=== PATIENT | male | born 1945 | race Caucasian/White ===

== ENCOUNTER → 2017-06-17 | Outpatient (CLI) | payer OTHER ==
[~2017-06-17] MED LIST: CHOL100010 PO; KETO10TA PO; OXYC-57 PO; PSYL48.59 PO; TADA2.5T PO
[2017-06-17 17:43] LABS: BASO % 0.2 %; BASO ABS # 0.01 K/uL (0-0.2); EOS % 2.3 %; EOS ABS # 0.12 K/uL (0-0.5); HEMATOCRIT 42.2 % (42-52); HEMOGLOBIN 15.3 g/dL (14.0-18.0); IG# 0.01 K/uL (0.00-0.02); LYMPH % 24.3 %; LYMPH ABS # 1.29 K/uL (1.2-3.4); MEAN CELL VOLUME 91.5 fL (80-100); MEAN CORPUSCULAR HEMOGLOBIN 33.2 pg (25-34); MEAN CORPUSCULAR HGB CONC 36.3 g/dl (32-36); MEAN PLATELET VOLUME 8.8 fL (7.4-10.4); MONO % 6.8 %; MONO ABS # 0.36 K/uL (0.11-0.59); NEUT % 66.2 %; NEUT ABS # 3.51 K/uL (1.4-6.5); PLATELET COUNT 140 K/uL (130-400); RED CELL DISTRIBUTION WIDTH CV 13.3 % (11.5-14.5); RED CELL DISTRIBUTION WIDTH SD 44.1 fL (36.4-46.3)
[2017-06-17 18:14] LABS: BLOOD UREA NITROGEN 11 mg/dl (7-18); CALCIUM 8.8 mg/dl (8.5-10.1); CARBON DIOXIDE 29 mmol/L (21-32); CREATININE 0.69 mg/dl (0.60-1.40); GLUCOSE 80 mg/dl (70-99); POTASSIUM 3.9 mmol/L (3.5-5.1); SODIUM 139 mmol/L (136-145)
== END | disposition home or self-care (01) ==
LOC: C.LAB 16:19
PROVIDERS: ATTEND Orthopaedic Surgery
DX: Z01.812 Encounter for preprocedural laboratory examination (principal); Z01.810 Encounter for preprocedural cardiovascular examination; M75.121 Complete rotator cuff tear or rupture of right shoulder, not specified as traumatic

== ENCOUNTER → 2017-06-20 | Day surgery (SDC) | payer OTHER ==
[2017-06-19 13:10] VITALS: Ht 188 cm; Wt 102.3 kg
[~2017-06-20] VITALS: Ht 188 cm; Wt 102.3 kg
[~2017-06-20] MED LIST changes: +ATROPINE SULFATE 0.1 MG/ML 5ML SYR IV PRN; +BUPIVACAINE 0.25% 30 ML VIAL ONE; +CEFAZOLIN 1000MG IV PUSH 7.5 ML IV SCH; +CEFAZOLIN 2000MG IV PUSH 15 ML IV SCH; +DEXAMETHASONE SOD INJ 4 MG/ML VIAL ONE; +EpHEDrine SULFATE 50MG/5ML SYR ONE; +EpHEDrine SULFATE INJ 50 MG/ML AMP IV PRN; +EpINEphrine INJ 1MG/ML AMP 1 MG/ML AMP ONE; +FENTANYL CITRATE INJ 50 MCG/1 ML 2 ML VIAL IV PRN; +FENTANYL CITRATE INJ 50 MCG/1 ML 2 ML VIAL ONE; +KETOROLAC TROMETHAMINE 15 MG/ML VIAL IV. PRN; +LIDOCAINE HCL 2% 2 ML VIAL (20MG/ML) ONE; +MIDAZOLAM HCL 1 MG/ML 2ML VIAL ONE; +ONDANSETRON INJ 2 MG/ML 2 ML VIAL IV PRN; +ONDANSETRON INJ 2 MG/ML 2 ML VIAL ONE; +OXYCODONE/ACETAMINOPHEN 5-325 TAB PO PRN; +PATIENT'S ALLERGY INFO NEEDS ENTERED SCH; +PATIENT'S HEIGHT AND/OR WEIGHT NEEDED SCH; +PROPOFOL IV EMULSION 10 MG/ML 20 ML VIAL IV ONE; +ROPIVACAINE 0.5% 5 MG/ML 30 ML VIAL ONE; +SODIUM CHLORIDE 0.9% 1000ML 1,000 ML IV SCH
[2017-06-20] MEDS: LACTATED RINGER'S 1000ML 1,000 ML IV SCH ×2 (08:58→13:16)
--- NOTE | 2017-06-20 11:30 | History & Physical Bridge - [place] ---
H&P Re-Evaluation Bridge Note: I have examined the patient, reviewed the History & Physical and in the interval since the performance of the History & Physical I have noted the following changes of clinical significance: No changes noted
--- NOTE | 2017-06-20 12:35 | [facility] Post Operative Brief Note ---
Immediate Operative Summary Operative Date Jun 20, 2017. Pre-Operative Diagnosis Right Full Thickness Rotator Cuff Tear Post-Operative Diagnosis Medium Rotator Cuff Tear, Bicep Tenopathy Procedure(s) Performed Right Shoulder Arthroscopy With Medium Rotator Cuff Repair, Acromioplasty, Distal Clavicle Resection, Arthoscopic Biceps Tendonesis Surgeon Dr. Iain Pierce Laborer Heading Surgeon(s) Hiram Pruitt PA-C Estimated Blood Loss 5 cc Findings Consistent with Post-Op Diagnosis Specimens None Anesthesia Type General Regional Complication(s) none Disposition Disposition: Recovery Room / PACU
--- NOTE | 2017-06-20 12:50 | Discharge Instructions-SurgCtr ---
Discharge Instructions Date of Service Jun 20, 2017. Visit Reason for Visit: Right Shoulder Full Thickness Rotator Cuff Teaer Discharge Discharge Diagnosis / Problem: SAME ABOVE Discharge Goals Goal(s): Decrease discomfort, Improve function Activity Recommendations Activity Limitations: as noted below Lifting Limitations: until after follow-up appointment Exercise/Sports Limitations: until after follow-up appointment Shower/Bathe: tomorrow Anesthesia . Post Anesthesia Instructions: If you have had General Anesthesia or IV Sedation: * Do not drive today. * Resume driving when surgeon permits. * Do not make important decisions or sign legal documents today. * Call surgeon for: 1. Temperature elevations greater than 101 degrees F. 2. Uncontrollable pain. 3. Excessive bleeding. 4. Persistent nausea and vomiting. 5. Medication intolerance (nausea, vomiting or rash). * For nausea and vomiting use only clear liquids such as: tea, soda, bouillon until nausea subsides, then gradually increase diet as tolerated. * If you have any concerns or questions, call your surgeon's office. If physician is unavailable and it is an emergency, call 911 or go to the nearest emergency room. . Instructions / Follow-Up Instructions / Follow-Up MEDICATIONS: * Resume previous medications unless instructed otherwise by your surgeon. * Always take pain medication on a full stomach or with food to avoid upset stomach. * Do not drink alcohol or drive while taking narcotics. * Ibuprofen or Tylenol may be taken if narcotic not needed. SPECIAL CARE INSTRUCTIONS: __ None _X_ Keep extremity elevated and iced x 48 hours; apply ice 20-30 minutes 8-10 times/day. May remove at night. __ Sling __24 hrs/day __ Remove at night _X_ Shoulder Immobilizer (MAY REMOVE AFTER 48 HOURS ONLY TO SHOWER AND FOR THERAPY) _X_ 24 hrs/day __ Remove at night _X_ Dressing __ Maintain until seen in office, may shower with plastic over site _X_ Remove dressings in 24-48 hours and then may shower _X_ Cover incisions with band-aids after showering __ Do not remove steri-strips Call physician if chills or temperature rises above 102 degrees or pain unrelieved by prescribed pain medications at . . Diet Recommendations Home Diet: no limitations Fluid Restriction: None Procedures Procedures Performed: Right Shoulder Arthroscopy With Medium Rotator Cuff Repair, Acromioplasty, Distal Clavicle Resection, Arthoscopic Biceps Tendonesis Pending Studies Studies pending at discharge: no Work Instructions Lifting Limitations: NO LIFTING WITH RIGHT SHOULDER Medical Emergencies . Who to Call and When: Medical Emergencies: If at any time you feel your situation is an emergency, please call 911 immediately. . Non-Emergent Contact Non-Emergency issues call your: Primary Care Provider Call Non-Emergent contact if: you have a fever, temperature is above 101.5 . . "Provider Documentation" section prepared by Kenneth Pruitt. .
--- NOTE | 2017-06-20 13:03 | OPERATIVE REPORT ---
DATE OF OPERATION: 06/20/2017 PREOPERATIVE DIAGNOSIS: Medium-sized right rotator cuff tear. POSTOPERATIVE DIAGNOSIS: Same. PROCEDURE: Right shoulder diagnostic arthroscopy with limited debridement, acromioplasty, distal clavicle resection to include co-planing the undersurface of the clavicle with a medium size rotator cuff repair and an arthroscopic biceps tenodesis. SURGEON: Dr. Harman Pierce. FRONT END JAVA DEVELOPER: Kenneth Pruitt PA-C, whose assistance was necessary for positioning the arm and help with instrumentation. ANESTHESIA: General with a right interscalene nerve block. COMPLICATIONS: None. CONDITION: Stable to PACU. INDICATIONS: Deep is a pleasant 72-year-old male who fell on his outstretched hand about 2-1/2 months ago. He has been having shoulder pain and weakness since. MRI and clinical examination were diagnostic for rotator cuff tear of the right shoulder. After failing conservative treatment, he elected to undergo arthroscopy. On 06/20/2017, he arrived at [facility] for the above procedure. He was seen in the preoperative holding and the operative extremity was identified and signed. He was given a preoperative antibiotic and a right interscalene nerve block. He was taken back to the operating room, laid on the table in supine position and put under general anesthesia. He was then put into the beachchair position. The right shoulder was prepped and draped in sterile fashion. A time-out was done and the patient's operative extremity was properly identified. A scope was introduced in the posterior portal. Diagnostic arthroscopy showed no cartilage damage to the humeral head or the glenoid. The biceps tendon was intact but frayed at the deonte mechanism. There was a tear of the entire supraspinatus. The majority of the infraspinatus, the teres minor and subscapularis were completely intact. An anterior portal was made. A shaver was used to do a limited debridement of the intraarticular structures and the biceps tendon was tenotomized for later tenodesis. The scope was then put into the subacromial space. A lateral portal was made. A shaver was used to do a complete subacromial and subdeltoid bursectomy. An ablator was used to tease the coracoacromial ligament off the undersurface of the acromion and a 5-0 juan was used to complete an acromioplasty of a Bigliani type 3 acromion. A shaver was used to remove any excess debris. There were very large osteophytes hanging off the undersurface of the clavicle. A 5-0 juan was used to remove the inferior osteophytes off the clavicle and open up the supraspinatus outlet. This completed distal clavicle resection. Attention was then turned to the rotator cuff. An additional anterolateral portal was made and Natty cannulas were placed in each lateral portals. It was a medium size crescent-shaped rotator cuff tear. The greater tuberosity was prepared with a ring curette and microfracture. The rotator cuff was then fixed with an Arthrex SpeedBridge configuration using BioComposite SwiveLock suture anchors in FiberTapes. This gave a nice repair and multiple pictures were taken. The scope was placed back into the glenohumeral joint and the articular margin of the rotator cuff had been restored. Pictures were taken. To note, the long head of the biceps tendon was tagged with a FiberLink and incorporated into the anterior medial anchor to complete an arthroscopic biceps tenodesis. Arthroscopic instruments were removed from the shoulder. Portal sites were closed with 3-0 nylon. He was then placed in a soft dressing and an abduction arm sling. He was then extubated, transferred to a litter and taken to the postanesthesia care unit in stable condition. He tolerated the procedure well. I attest to the content of the Intraoperative Record and any orders documented therein. Any exception s are noted below.
[2017-06-20 13:32] VITALS: TEMP 36.4
[2017-06-20 14:20] VITALS: BP 148/76; PULSE 60; O2SAT 95
--- NOTE | 2017-06-20 14:26 | Anesthesia Progress Nt - [facility] ---
Anesthesia Post Op Note Date & Time Jun 20, 2017 at 14:26 Vital Signs Pain Intensity: 2.0 Vital Signs Past 12 Hours Date Time Temp Pulse Resp B/P (MAP) Pulse Ox O2 Delivery O2 Flow Rate FiO2 06/20/17 14:20 60 16 148/76 (100) 95 Room Air 06/20/17 13:32 36.4 60 16 146/78 (100) 98 Room Air 06/20/17 13:25 145/77 06/20/17 13:22 59 11 06/20/17 13:22 61 11 96 06/20/17 13:21 36.2 61 12 145/77 98 Room Air 06/20/17 13:20 121/63 06/20/17 13:17 57 4 97 06/20/17 13:17 57 4 06/20/17 13:16 140/67 06/20/17 13:12 60 17 06/20/17 13:12 59 17 100 06/20/17 13:11 147/76 06/20/17 13:07 61 8 06/20/17 13:07 61 8 100 06/20/17 13:06 97/83 06/20/17 13:02 48 7 06/20/17 13:02 57 7 100 06/20/17 13:01 143/82 06/20/17 12:57 61 10 138/81 100 06/20/17 12:57 51 10 06/20/17 12:52 64 23 149/68 87 06/20/17 12:52 66 23 06/20/17 12:52 36.4 64 12 149/68 100 Mask 6 06/20/17 11:23 49 06/20/17 11:23 48 7 100 06/20/17 11:20 149/76 06/20/17 11:18 49 8 100 06/20/17 11:18 50 06/20/17 11:15 122/84 06/20/17 11:13 61 06/20/17 11:13 60 27 100 06/20/17 11:11 142/78 06/20/17 11:08 48 6 100 06/20/17 11:08 48 06/20/17 11:06 144/80 06/20/17 11:03 51 5 100 06/20/17 11:03 50 06/20/17 11:01 164/83 06/20/17 11:00 50 29 148/78 (101) 100 Mask 6 06/20/17 10:59 148/78 06/20/17 10:58 48 0 98 06/20/17 10:58 49 06/20/17 10:53 47 0 97 06/20/17 10:53 47 06/20/17 10:48 0 06/20/17 10:43 0 06/20/17 10:38 0 06/20/17 08:34 36.6 56 18 141/89 (106) 95 Room Air Notes Mental Status: alert / awake / arousable, participated in evaluation Pt Amnestic to Procedure: Yes Nausea / Vomiting: adequately controlled Pain: adequately controlled Airway Patency, RR, SpO2: stable & adequate BP & HR: stable & adequate Hydration State: stable & adequate Anesthetic Complications: no major complications apparent
== END | disposition home or self-care (01) ==
LOC: X.SURG 08:07
PROVIDERS: ATTEND Orthopaedic Surgery
DX: S46.011A Strain of muscle(s) and tendon(s) of the rotator cuff of right shoulder, initial encounter (principal); W01.0XXA Fall on same level from slipping, tripping and stumbling without subsequent striking against object, initial encounter; Z90.89 Acquired absence of other organs; Z88.8 Allergy status to other drugs, medicaments and biological substances; K21.9 Gastro-esophageal reflux disease without esophagitis; Z87.891 Personal history of nicotine dependence